=== PATIENT | female | born 1940 | race Caucasian/White ===

== ENCOUNTER 2016-09-03 16:45 | Emergency (ER) | payer OTHER ==
--- NOTE | 2016-09-03 17:14 | ED ORDER SUMMARY ---
..... Patient: SILVIO BEAVERS OrderSheet [facility] VisitID: [id number] [address] [place] [address] 75y, F Registration Date/Time: 09/03/2016 ORDER SHEET Weight: 64.4 kg (stated) Allergies: Penicillins, Doxycycline GENERAL ORDERS: Dress Wounds (x1 1/4 inch steri strip across middle thanks) (17:08 09/03/2016 Bernardo A.R.N.P.) (17:29 Corey Barrett) MEDICATION ORDERS: IV FLUIDS: ORDER SHEET NOTES: [Electronically signed by Sera MahoneyR.N.PIjeoma (18:24 09/03/2016)] [Electronically signed by Peggy Burgess R.N. (19:27 09/03/2016)] [Electronically locked/signed by Peggy Burgess R.N. (19:27 09/03/2016)]
--- NOTE | 2016-09-03 17:14 | ED ORDER SUMMARY ---
..... Patient: SILVIO BEAVERS OrderSheet [facility] VisitID: [id number] [address] [place] [address] 75y, F Registration Date/Time: 09/03/2016 ORDER SHEET Weight: 64.4 kg (stated) Allergies: Penicillins, Doxycycline GENERAL ORDERS: Dress Wounds (x1 1/4 inch steri strip across middle thanks) (17:08 09/03/2016 Bernardo A.R.N.P.) (17:29 Corey Barrett) MEDICATION ORDERS: IV FLUIDS: ORDER SHEET NOTES: [Electronically signed by Sera MahoneyR.N.PIjeoma (18:24 09/03/2016)] [Electronically signed by Peggy Burgess R.N. (19:27 09/03/2016)] [Electronically locked/signed by Peggy Burgess R.N. (19:27 09/03/2016)]
--- NOTE | 2016-09-03 17:14 | ED NURSING NOTES ---
Clinical Report - Nurses [facility] [address] [place] [address] 09/03/2016 16:45 Patient: SILVIO BEAVERS TRIAGE Acuity: LEVEL 4. Chief Complaint: DOG BITE. Alert. No acute distress. SEPSIS SCREEN: Sepsis Screen. Negative (no infection suspected/documented). ROSEMARIE COMA SCORE: [place] Coma Scale: 15- eyes open spontaneously (4); best verbal response- oriented x 4 (5); best motor response- obeys commands (6). --17:00 Peggy Burgess R.N. 16:48 09/03/16. BP: 129/66. HR: 90. RR: 24. O2 saturation: 88% on room air. Temp: 98.9 F. Pain level now: 03/27. --17:00 Peggy Burgess R.N. Weight: 64.4 kg stated. Height/Length: 60 inches Per Patient. BMI: 27.7. --16:54 Peggy Burgess R.N. Medications Letairis Oral (Tablet 10 mg). --16:52 Peggy Burgess R.N. Remodulin Injection. --16:54 Peggy Burgess R.N. Medication/allergy information source: the patient. --17:00 Peggy Burgess R.N. Allergies Penicillins. --16:49 Peggy Burgess R.N. Doxycycline. --16:49 Peggy Burgess R.N. History Arrived by EMS. Historian: patient. Unaccompanied. Primary physician (Analilia). Location of injuries: face. This occurred just prior to arrival. Occurred at a store. Circumstances: This was an "unprovoked" attack. The animal reportedly appeared well and the immunization status of the animal is unknown. 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 HR: 135. RR: 20. O2 saturation: 78 room air. PAST MEDICAL HX: Tetanus status: up-to-date. The patient is post-menopausal. SOCIAL HX: Former smoker, end date 1993. Occasional alcohol use. No drug use. NUTRITIONAL RISK ASSESSMENT: The nutritional risk assessment revealed no deficiencies. FUNCTIONAL ASSESSMENT: Functional assessment: no impairments noted. LEARNING NEEDS ASSESSMENT: The learning needs assessment revealed no barriers. FALL RISK ASSESSMENT: Fall risk assessment completed. Risk factors identified include patient age greater than 65 years. Fall interventions initiated. Brakes on Bed in low position. Call light in reach of patient. SKIN INTEGRITY ASSESSMENT: Skin integrity risk assessment completed. No skin integrity risk identified. --17:00 Peggy Burgess R.N. PROBLEMS: Fibromyalgia. Congestive Heart Failure. Pulmonary Hypertension. --16:50 Peggy Burgess R.N. Bladder cancer. Crest syndrome. --16:56 Peggy Burgess R.N. ADDITIONAL SURGERIES: Cholecystectomy. Tummy tuck. --16:59 Peggy Burgess R.N. Assessment GENERAL / NEURO / PSYCH: Alert. Oriented X 4. Appears in no acute distress. Patient appears calm and cooperative. RESPIRATORY: Respirations not labored. CVS: Capillary refill less than 2 seconds. GI / : Abdomen soft. SKIN: Mucous membranes are pink. Skin is warm and dry. --17:00 Peggy Burgess R.N. Interventions ID band on patient. To treatment room. --17:00 Peggy Burgess R.N. PHYSICAL ASSESSMENT Ambulatory to room. GENERAL / NEURO / PSYCH: Alert. Oriented X 4. Appears in no acute distress. HEENT: Pupils equal, round and reactive to light. Head non-tender. Mouth: tenderness, erythema and laceration (involving the vermilion border of the lip) of the upper lip. RESPIRATORY: Respirations not labored. CVS: Pulses within normal limits. Capillary refill less than 2 seconds. GI / : Abdomen soft and nontender. EXTREMITIES: Neuro-vascular status intact to the extremity. SKIN: Skin is warm and dry. No signs or symptoms of infection. --17:01 Peggy Burgess R.N. NURSING PROGRESS NOTES 17:09/03/16. Two patient identifiers checked. Call light placed in reach. Side rails up x 1. Bed placed in lowest position. Brakes of bed on. Patient ready for evaluation- chart flagged and ED physician and CASTING MACHINE OPERATOR AUTOMATIC notified. --17:02 Peggy Burgess R.N. Applied dressing consisting of steri-strips, following the application of benzoin solution. --17:35 Rosalinda Neumann ER Tech1. DISPOSITION / DISCHARGE Departure time: Sep 03 2016. Condition at departure: improved and stable. No learning barriers present. Discharge instructions provided and reviewed with the patient. Reviewed medication(s) side effects, precautions and dosing information. Prescription(s) given to the patient. Reviewed wound care instructions. Patient verbalized understanding. Written instructions provided in Belgian. The patient was discharged by the nurse practitioner. She was discharged home and accompanied by sister. She left the Emergency Department ambulatory and via private vehicle. Driving (sister). --19:26 Peggy Burgess R.N. Locked/Released at 09/03/2016 19:27 by Peggy Burgess R.N.
--- NOTE | 2016-09-03 17:14 | ED NURSING NOTES ---
Clinical Report - Nurses [facility] [address] [place] [address] 09/03/2016 16:45 Patient: SILVIO BEAVERS TRIAGE Acuity: LEVEL 4. Chief Complaint: DOG BITE. Alert. No acute distress. SEPSIS SCREEN: Sepsis Screen. Negative (no infection suspected/documented). ROSEMARIE COMA SCORE: [place] Coma Scale: 15- eyes open spontaneously (4); best verbal response- oriented x 4 (5); best motor response- obeys commands (6). --17:00 Peggy Burgess R.N. 16:48 09/03/16. BP: 129/66. HR: 90. RR: 24. O2 saturation: 88% on room air. Temp: 98.9 F. Pain level now: 03/27. --17:00 Peggy Burgess R.N. Weight: 64.4 kg stated. Height/Length: 60 inches Per Patient. BMI: 27.7. --16:54 Peggy Burgess R.N. Medications Letairis Oral (Tablet 10 mg). --16:52 Peggy Burgess R.N. Remodulin Injection. --16:54 Peggy Burgess R.N. Medication/allergy information source: the patient. --17:00 Peggy Burgess R.N. Allergies Penicillins. --16:49 Peggy Burgess R.N. Doxycycline. --16:49 Peggy Burgess R.N. History Arrived by EMS. Historian: patient. Unaccompanied. Primary physician (Analilia). Location of injuries: face. This occurred just prior to arrival. Occurred at a store. Circumstances: This was an "unprovoked" attack. The animal reportedly appeared well and the immunization status of the animal is unknown. 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 HR: 135. RR: 20. O2 saturation: 78 room air. PAST MEDICAL HX: Tetanus status: up-to-date. The patient is post-menopausal. SOCIAL HX: Former smoker, end date 1993. Occasional alcohol use. No drug use. NUTRITIONAL RISK ASSESSMENT: The nutritional risk assessment revealed no deficiencies. FUNCTIONAL ASSESSMENT: Functional assessment: no impairments noted. LEARNING NEEDS ASSESSMENT: The learning needs assessment revealed no barriers. FALL RISK ASSESSMENT: Fall risk assessment completed. Risk factors identified include patient age greater than 65 years. Fall interventions initiated. Brakes on Bed in low position. Call light in reach of patient. SKIN INTEGRITY ASSESSMENT: Skin integrity risk assessment completed. No skin integrity risk identified. --17:00 Peggy Burgess R.N. PROBLEMS: Fibromyalgia. Congestive Heart Failure. Pulmonary Hypertension. --16:50 Peggy Burgess R.N. Bladder cancer. Crest syndrome. --16:56 Peggy Burgess R.N. ADDITIONAL SURGERIES: Cholecystectomy. Tummy tuck. --16:59 Peggy Burgess R.N. Assessment GENERAL / NEURO / PSYCH: Alert. Oriented X 4. Appears in no acute distress. Patient appears calm and cooperative. RESPIRATORY: Respirations not labored. CVS: Capillary refill less than 2 seconds. GI / : Abdomen soft. SKIN: Mucous membranes are pink. Skin is warm and dry. --17:00 Peggy Burgess R.N. Interventions ID band on patient. To treatment room. --17:00 Peggy Burgess R.N. PHYSICAL ASSESSMENT Ambulatory to room. GENERAL / NEURO / PSYCH: Alert. Oriented X 4. Appears in no acute distress. HEENT: Pupils equal, round and reactive to light. Head non-tender. Mouth: tenderness, erythema and laceration (involving the vermilion border of the lip) of the upper lip. RESPIRATORY: Respirations not labored. CVS: Pulses within normal limits. Capillary refill less than 2 seconds. GI / : Abdomen soft and nontender. EXTREMITIES: Neuro-vascular status intact to the extremity. SKIN: Skin is warm and dry. No signs or symptoms of infection. --17:01 Peggy Burgess R.N. NURSING PROGRESS NOTES 17:09/03/16. Two patient identifiers checked. Call light placed in reach. Side rails up x 1. Bed placed in lowest position. Brakes of bed on. Patient ready for evaluation- chart flagged and ED physician and CIVIL ENGINEERING DRAFTER notified. --17:02 Peggy Burgess R.N. Applied dressing consisting of steri-strips, following the application of benzoin solution. --17:35 Rosalinda Neumann ER Tech1. DISPOSITION / DISCHARGE Departure time: Sep 03 2016. Condition at departure: improved and stable. No learning barriers present. Discharge instructions provided and reviewed with the patient. Reviewed medication(s) side effects, precautions and dosing information. Prescription(s) given to the patient. Reviewed wound care instructions. Patient verbalized understanding. Written instructions provided in [place]. The patient was discharged by the nurse practitioner. She was discharged home and accompanied by sister. She left the Emergency Department ambulatory and via private vehicle. Driving (sister). --19:26 Peggy Burgess R.N. Locked/Released at 09/03/2016 19:27 by Peggy Burgess R.N.
--- NOTE | 2016-09-03 17:14 | ED CLINICAL REPORT ---
Clinical Report - Physicians/Mid Levels [facility] [address] [place] [address] 09/03/2016 16:45 Patient: SILVIO BEAVERS Time Seen: 1652; initial patient contact, initial documentation, patient care assumed. Arrived- By private vehicle. Historian- patient. HISTORY OF PRESENT ILLNESS Location of injuries- face. Chief Complaint: DOG BITE. The injury occurred just prior to arrival. This was an "unprovoked" attack. (walking out of grocery store, dog there, reached down to pet dog and got bit). Patient approached animal. (grocery store). No skin rash. She has not had trouble swallowing. 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 REVIEW OF SYSTEMS No swelling, numbness or difficulty breathing. All systems otherwise negative, except as recorded above. PAST HISTORY See nurses notes. PROBLEMS: Fibromyalgia. Congestive Heart Failure. Pulmonary Hypertension. --16:50 Peggy Burgess R.N. Bladder cancer. Crest syndrome. --16:56 Peggy Burgess R.N. ADDITIONAL SURGERIES: Cholecystectomy. Tummy tuck. --16:59 Peggy Burgess R.N. Tetanus immunization status is up-to-date. SOCIAL HISTORY Former smoker. Occasional alcohol use. No drug use. No recent travel. Is a local resident. FAMILY HISTORY No significant family medical history. ADDITIONAL NOTES The nursing notes have been reviewed with agreement regarding the chief complaint, HPI, ROS, PMH and patient medications and allergies. PHYSICAL EXAM Vital Signs: 09/03/2016 16:48 BP: 129/66. HR: 90. RR: 24. O2 saturation: 88%. Temp: 98.9 F. Pain level now: 8/10. Have been reviewed as abnormal and do not appear to be correct. Blood pressure normal. Heart rate normal. Respiratory rate normal. Temperature normal. Oxygen saturation: 98 % room air when I was in room- oxygen saturation low. Appearance: Alert. Oriented X3. No acute distress. Head: Head normal on inspection and non-tender. Mouth: subcutaneous 1.0 cm laceration of the the area above the upper lip. No erythema, tenderness, swelling, abrasion or ecchymosis. No puncture wound, foreign body or deformity. No malocclusion or dental abnormality. Eyes: Eyes normal inspection. ENT: Ears normal on inspection. Nose normal on inspection. Mouth normal on inspection. Neck: Normal inspection. Neck non-tender. Painless ROM. Skin: Skin intact. Skin warm and dry. Normal skin color. Normal skin turgor. Extremities: Normal inspection. Pelvis stable. Extremities atraumatic. No lower extremity edema. Neuro: Oriented X 3. No motor deficit. No sensory deficit. PROGRESS AND PROCEDURES Course of Care: tx options discussed, with closure of bites, decided with pt that best closure would be partial with steri strip, pt did not want sutures. Patient counseled in person regarding the patient's stable condition and diagnosis. 17:14. Differential Diagnosis: Other possible considerations: dog bite, skin avulsion. Above considerations are based on history and physical exam. Differential diagnosis was discussed with patient. Disposition: Discharged home in good and improved condition (17:14). Condition: good and stable. CLINICAL IMPRESSION Single superficial dog bite (face). INSTRUCTIONS Protect wound and keep wound area clean. You may wash wounds briefly, then dry. Allow steri-strips to remain in place until they loosen. Warnings: GENERAL WARNINGS: Return or contact your physician immediately if your condition worsens or changes unexpectedly, if not improving as expected, or if other problems arise. Specifically return if problem worsens. Prescription Medications: Cephalexin 500 mg: take 1 capsule orally every 8 hours for 10 days. No refill. Follow-up: Follow up with your doctor in about three days even if well and for wound check. Call for an appointment. Summary of care provided to patient. Understanding of the discharge instructions verbalized by patient. (Electronically signed by Sera Mahoney A.R.N.P. 09/03/2016 18:24)
--- NOTE | 2016-09-03 17:14 | ED CLINICAL REPORT ---
Clinical Report - Physicians/Mid Levels [facility] [address] [place] [address] 09/03/2016 16:45 Patient: SILVIO BEAVERS Time Seen: 1652; initial patient contact, initial documentation, patient care assumed. Arrived- By private vehicle. Historian- patient. HISTORY OF PRESENT ILLNESS Location of injuries- face. Chief Complaint: DOG BITE. The injury occurred just prior to arrival. This was an "unprovoked" attack. (walking out of grocery store, dog there, reached down to pet dog and got bit). Patient approached animal. (grocery store). No skin rash. She has not had trouble swallowing. 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 REVIEW OF SYSTEMS No swelling, numbness or difficulty breathing. All systems otherwise negative, except as recorded above. PAST HISTORY See nurses notes. PROBLEMS: Fibromyalgia. Congestive Heart Failure. Pulmonary Hypertension. --16:50 Peggy Burgess R.N. Bladder cancer. Crest syndrome. --16:56 Peggy Burgess R.N. ADDITIONAL SURGERIES: Cholecystectomy. Tummy tuck. --16:59 Peggy Burgess R.N. Tetanus immunization status is up-to-date. SOCIAL HISTORY Former smoker. Occasional alcohol use. No drug use. No recent travel. Is a local resident. FAMILY HISTORY No significant family medical history. ADDITIONAL NOTES The nursing notes have been reviewed with agreement regarding the chief complaint, HPI, ROS, PMH and patient medications and allergies. PHYSICAL EXAM Vital Signs: 09/03/2016 16:48 BP: 129/66. HR: 90. RR: 24. O2 saturation: 88%. Temp: 98.9 F. Pain level now: 8/10. Have been reviewed as abnormal and do not appear to be correct. Blood pressure normal. Heart rate normal. Respiratory rate normal. Temperature normal. Oxygen saturation: 98 % room air when I was in room- oxygen saturation low. Appearance: Alert. Oriented X3. No acute distress. Head: Head normal on inspection and non-tender. Mouth: subcutaneous 1.0 cm laceration of the the area above the upper lip. No erythema, tenderness, swelling, abrasion or ecchymosis. No puncture wound, foreign body or deformity. No malocclusion or dental abnormality. Eyes: Eyes normal inspection. ENT: Ears normal on inspection. Nose normal on inspection. Mouth normal on inspection. Neck: Normal inspection. Neck non-tender. Painless ROM. Skin: Skin intact. Skin warm and dry. Normal skin color. Normal skin turgor. Extremities: Normal inspection. Pelvis stable. Extremities atraumatic. No lower extremity edema. Neuro: Oriented X 3. No motor deficit. No sensory deficit. PROGRESS AND PROCEDURES Course of Care: tx options discussed, with closure of bites, decided with pt that best closure would be partial with steri strip, pt did not want sutures. Patient counseled in person regarding the patient's stable condition and diagnosis. 17:14. Differential Diagnosis: Other possible considerations: dog bite, skin avulsion. Above considerations are based on history and physical exam. Differential diagnosis was discussed with patient. Disposition: Discharged home in good and improved condition (17:14). Condition: good and stable. CLINICAL IMPRESSION Single superficial dog bite (face). INSTRUCTIONS Protect wound and keep wound area clean. You may wash wounds briefly, then dry. Allow steri-strips to remain in place until they loosen. Warnings: GENERAL WARNINGS: Return or contact your physician immediately if your condition worsens or changes unexpectedly, if not improving as expected, or if other problems arise. Specifically return if problem worsens. Prescription Medications: Cephalexin 500 mg: take 1 capsule orally every 8 hours for 10 days. No refill. Follow-up: Follow up with your doctor in about three days even if well and for wound check. Call for an appointment. Summary of care provided to patient. Understanding of the discharge instructions verbalized by patient. (Electronically signed by Sera Mahoney A.R.N.P. 09/03/2016 18:24)
--- NOTE | 2016-09-03 19:27 | ED DISCHARGE INSTRUCTIONS ---
Patient: SILVIO BEAVERS General Instructions [facility] VisitID: [id number] [place] [address] 75y, F Registration Date/Time: 09/03/2016 Single superficial dog bite (face). INSTRUCTIONS Protect wound and keep wound area clean. You may wash wounds briefly, then dry. Allow steri-strips to remain in place until they loosen. Warnings: GENERAL WARNINGS: Return or contact your physician immediately if your condition worsens or changes unexpectedly, if not improving as expected, or if other problems arise. Specifically return if problem worsens. Prescription Medications: Cephalexin 500 mg: take 1 capsule orally every 8 hours for 10 days. No refill. Follow-up: Follow up with your doctor in about three days even if well and for wound check. Call for an appointment. Summary of care provided to patient. Understanding of the discharge instructions verbalized by patient. ADDITIONAL INFORMATION Dog Bite If a dog has bitten you and the wound is deep enough to break the skin, an infection may occur. Therefore, you should watch for the warning signs listed below. The doctor may not close the wound completely. This is to allow fluid to drain in the event of an infection. Home Care Watch the wound for signs of infection listed below. In certain types of bites, antibiotics may be prescribed. Begin taking these as soon as possible, as directed until they are all gone. Rabies Prevention If you live in an area where rabies occurs in wild animals, the rabies virus can be passed to cats and dogs. An infected animal can pass the rabies virus to you during a bite. If ahealthy-looking pet dog has bitten you, it should be kept in a secure area for the next 10 days to watch for signs of illness. If the pet prosthodontist/owner wont cooperate with you, contact the [facility] animal control department (or local law enforcement). If the animal becomes ill or dies [id number] days, contact your animal control department at once. The animal must be tested for rabies. If the animal stays healthy for the next 10 days, then there is no danger of rabies in the dog or you. Pets fully vaccinated against rabies (2 shots) are at very low risk for the infection. However, because human rabies is almost always fatal, any biting dog should be kept in confinement for 10 days as an extra precaution. If a stray dog bit you, contact the animal control department. They can provide information on capture, quarantine, and animal rabies testing. If you are unable to locate the animal that bit you in the next 2days, and if rabies exists in your region, you must be evaluated for the rabies vaccine series. Contact your doctor or return here promptly. All animal bites should be reported to the [facility] animal control department. If you were not given a form to fill out, you can report it yourself by calling. Follow Up with your doctor as advised. Most skin wounds heal within 10 days. However, an infection may occur even with proper treatment. Check your woundevery 6 hoursfor 2 days, then at least once a day for the next two days for the signs of infection listed below. Get Prompt Medical Attention if any of the following occur: Signs of infection: Spreading redness Increased pain or swelling Fever of 100.4F (38C) or higher, or as directed by your healthcare provider Colored fluid or pus draining from the wound Headache, confusion, strange behavior, or a seizure (signs of a rabies infection) Laceration, Face (Suture Or Tape) Alaceration is a cut through the skin. This will require stitches if it is deep. Minor cuts may be treated with surgical tape. Home care The following guidelines will help you care for your laceration at home: If a bandage was applied and it becomes wet or dirty, replace it. Otherwise, leave it in place for the first 24 hours, then change it once a day or as directed. If sutures were used, clean the wound daily: After removing the bandage, wash the area with soap and water. Use a wet cotton swab to loosen and remove any blood or crust that forms. After cleaning, keep the wound clean and dry. Talk with your doctor before applying any antibiotic ointment to the wound. Reapply a fresh bandage. You may remove the bandage to shower as usual after the first 24 hours, but do not soak the area in water (no swimming) until the sutures are removed. If surgical tape was used, keep the area clean and dry. If it becomes wet, blot it dry with a towel. The doctor may prescribe an antibiotic cream or ointment to prevent infection. Do not stop taking this medication until you have have finished the prescribed course or the doctor tells you to stop. The doctor may also prescribe medications for pain. Follow the doctor's instructions for taking these medications.If you have chronic liver or kidney disease or ever had a stomach ulcer or GI bleeding, talk with your doctor before using these medicines. Follow-up care Follow up with your health care provider. Most facial cuts heal in five days with no problem. However, even with proper treatment, a wound infection sometimes occurs. Therefore, check the wound daily for the warning signs listed below. Stitches should not be left in the face for more thanfivedays; otherwise, permanent stitch tang may form. If surgical tape closures were used, you may remove them yourself afterfivedays, if they have not fallen off by then. When to seek medical care Get prompt medical attention if any of these occur: Increasing pain in the wound Redness, swelling, or pus coming from the wound If sutures come apart or fall out before 5 days If the surgical tape closures fall off before 5 days, or the wound edges reopen Fever of 100.4F (38C) or higher, or as directed by your health care provider Bleeding not controlled by direct pressure Cephalexin Monohydrate Oral tablet What is this medicine? CEPHALEXIN (sef a TUAN in) is a cephalosporin antibiotic. It is used to treat certain kinds of bacterial infections It will not work for colds, flu, or other viral infections. How should I use this medicine? Take this medicine by mouth with a full glass of water. Follow the directions on the prescription label. This medicine can be taken with or without food. Take your medicine at regular intervals. Do not take your medicine more often than directed. Take all of your medicine as directed even if you think you are better. Do not skip doses or stop your medicine early. Talk to your laser systems engineer regarding the use of this medicine in children. While this drug may be prescribed for selected conditions, precautions do apply. What side effects may I notice from receiving this medicine? Side effects that you should report to your doctor or health direct care staffer as soon as possible: allergic reactions like skin rash, itching or hives, swelling of the face, lips, or tongue breathing problems pain or trouble passing urine redness, blistering, peeling or loosening of the skin, including inside the mouth severe or watery diarrhea unusually weak or tired yellowing of the eyes, skin Side effects that usually do not require medical attention (report to your doctor or health direct care staffer if they continue or are bothersome): gas or heartburn genital or anal irritation headache joint or muscle pain nausea, vomiting What may interact with this medicine? probenecid some other antibiotics What if I miss a dose? If you miss a dose, take it as soon as you can. If it is almost time for your next dose, take only that dose. Do not take double or extra doses. There should be at least 4 to 6 hours between doses. Where should I keep my medicine? Keep out of the reach of children. Store at room temperature between 59 and 86 degrees F (15 and 30 degrees C). Throw away any unused medicine after the expiration date. What should I tell my health care provider before I take this medicine? They need to know if you have any of these conditions: kidney disease stomach or intestine problems, especially colitis an unusual or allergic reaction to cephalexin, other cephalosporins, penicillins, other antibiotics, medicines, foods, dyes or preservatives or trying to get breast-feeding What should I watch for while using this medicine? Tell your doctor or health direct care staffer if your symptoms do not begin to improve in a few days. Do not treat diarrhea with over the counter products. Contact your doctor if you have diarrhea that lasts more than 2 days or if it is severe and watery. If you have diabetes, you may get a false-positive result for sugar in your urine. Check with your doctor or health direct care staffer. You have been given the following additional information: Dog Bite Laceration, Face (Suture Or Tape) Cephalexin Monohydrate Oral tablet (Electronically signed by Sera Mahoney A.R.NSharifa 09/03/2016 18:24)
--- NOTE | 2016-09-03 19:27 | ED MED RECONCILIATION SUMMARY ---
Patient: SILVIO BEAVERS Medication Reconciliation Report [facility] VisitID: [id number] [address] [place] [address] 75y, F Registration Date/Time: 09/03/2016 Weight: 64.4 kg Height/Length: 60 in. BMI: 27.7 ALLERGIES: Doxycycline, Penicillins The patient's Home Medications are listed below: THE FOLLOWING MEDICATIONS NEED TO BE RECONCILED: Letairis Oral (10 mg) Remodulin Injection The source(s) of the original Home Medication information: patient The following Medications were given to the patient in the Emergency Department: None. The following Medications were prescribed to the patient: Cephalexin 500 mg: take 1 capsule orally every 8 hours for 10 days. No refill. -- Sera Mahoney A.R.N.P.
--- NOTE | 2016-09-03 19:27 | ED DISCHARGE INSTRUCTIONS ---
Patient: SILVIO BEAVERS General Instructions [facility] VisitID: [id number] [place] [address] 75y, F Registration Date/Time: 09/03/2016 Single superficial dog bite (face). INSTRUCTIONS Protect wound and keep wound area clean. You may wash wounds briefly, then dry. Allow steri-strips to remain in place until they loosen. Warnings: GENERAL WARNINGS: Return or contact your physician immediately if your condition worsens or changes unexpectedly, if not improving as expected, or if other problems arise. Specifically return if problem worsens. Prescription Medications: Cephalexin 500 mg: take 1 capsule orally every 8 hours for 10 days. No refill. Follow-up: Follow up with your doctor in about three days even if well and for wound check. Call for an appointment. Summary of care provided to patient. Understanding of the discharge instructions verbalized by patient. ADDITIONAL INFORMATION Dog Bite If a dog has bitten you and the wound is deep enough to break the skin, an infection may occur. Therefore, you should watch for the warning signs listed below. The doctor may not close the wound completely. This is to allow fluid to drain in the event of an infection. Home Care Watch the wound for signs of infection listed below. In certain types of bites, antibiotics may be prescribed. Begin taking these as soon as possible, as directed until they are all gone. Rabies Prevention If you live in an area where rabies occurs in wild animals, the rabies virus can be passed to cats and dogs. An infected animal can pass the rabies virus to you during a bite. If ahealthy-looking pet dog has bitten you, it should be kept in a secure area for the next 10 days to watch for signs of illness. If the pet dust brush assembler wont cooperate with you, contact the [facility] animal control department (or local law enforcement). If the animal becomes ill or dies [id number] days, contact your animal control department at once. The animal must be tested for rabies. If the animal stays healthy for the next 10 days, then there is no danger of rabies in the dog or you. Pets fully vaccinated against rabies (2 shots) are at very low risk for the infection. However, because human rabies is almost always fatal, any biting dog should be kept in confinement for 10 days as an extra precaution. If a stray dog bit you, contact the animal control department. They can provide information on capture, quarantine, and animal rabies testing. If you are unable to locate the animal that bit you in the next 2days, and if rabies exists in your region, you must be evaluated for the rabies vaccine series. Contact your doctor or return here promptly. All animal bites should be reported to the [facility] animal control department. If you were not given a form to fill out, you can report it yourself by calling. Follow Up with your doctor as advised. Most skin wounds heal within 10 days. However, an infection may occur even with proper treatment. Check your woundevery 6 hoursfor 2 days, then at least once a day for the next two days for the signs of infection listed below. Get Prompt Medical Attention if any of the following occur: Signs of infection: Spreading redness Increased pain or swelling Fever of 100.4F (38C) or higher, or as directed by your healthcare provider Colored fluid or pus draining from the wound Headache, confusion, strange behavior, or a seizure (signs of a rabies infection) Laceration, Face (Suture Or Tape) Alaceration is a cut through the skin. This will require stitches if it is deep. Minor cuts may be treated with surgical tape. Home care The following guidelines will help you care for your laceration at home: If a bandage was applied and it becomes wet or dirty, replace it. Otherwise, leave it in place for the first 24 hours, then change it once a day or as directed. If sutures were used, clean the wound daily: After removing the bandage, wash the area with soap and water. Use a wet cotton swab to loosen and remove any blood or crust that forms. After cleaning, keep the wound clean and dry. Talk with your doctor before applying any antibiotic ointment to the wound. Reapply a fresh bandage. You may remove the bandage to shower as usual after the first 24 hours, but do not soak the area in water (no swimming) until the sutures are removed. If surgical tape was used, keep the area clean and dry. If it becomes wet, blot it dry with a towel. The doctor may prescribe an antibiotic cream or ointment to prevent infection. Do not stop taking this medication until you have have finished the prescribed course or the doctor tells you to stop. The doctor may also prescribe medications for pain. Follow the doctor's instructions for taking these medications.If you have chronic liver or kidney disease or ever had a stomach ulcer or GI bleeding, talk with your doctor before using these medicines. Follow-up care Follow up with your health care provider. Most facial cuts heal in five days with no problem. However, even with proper treatment, a wound infection sometimes occurs. Therefore, check the wound daily for the warning signs listed below. Stitches should not be left in the face for more thanfivedays; otherwise, permanent stitch tang may form. If surgical tape closures were used, you may remove them yourself afterfivedays, if they have not fallen off by then. When to seek medical care Get prompt medical attention if any of these occur: Increasing pain in the wound Redness, swelling, or pus coming from the wound If sutures come apart or fall out before 5 days If the surgical tape closures fall off before 5 days, or the wound edges reopen Fever of 100.4F (38C) or higher, or as directed by your health care provider Bleeding not controlled by direct pressure Cephalexin Monohydrate Oral tablet What is this medicine? CEPHALEXIN (sef a TUAN in) is a cephalosporin antibiotic. It is used to treat certain kinds of bacterial infections It will not work for colds, flu, or other viral infections. How should I use this medicine? Take this medicine by mouth with a full glass of water. Follow the directions on the prescription label. This medicine can be taken with or without food. Take your medicine at regular intervals. Do not take your medicine more often than directed. Take all of your medicine as directed even if you think you are better. Do not skip doses or stop your medicine early. Talk to your stores naval regarding the use of this medicine in children. While this drug may be prescribed for selected conditions, precautions do apply. What side effects may I notice from receiving this medicine? Side effects that you should report to your doctor or health day care director as soon as possible: allergic reactions like skin rash, itching or hives, swelling of the face, lips, or tongue breathing problems pain or trouble passing urine redness, blistering, peeling or loosening of the skin, including inside the mouth severe or watery diarrhea unusually weak or tired yellowing of the eyes, skin Side effects that usually do not require medical attention (report to your doctor or health day care director if they continue or are bothersome): gas or heartburn genital or anal irritation headache joint or muscle pain nausea, vomiting What may interact with this medicine? probenecid some other antibiotics What if I miss a dose? If you miss a dose, take it as soon as you can. If it is almost time for your next dose, take only that dose. Do not take double or extra doses. There should be at least 4 to 6 hours between doses. Where should I keep my medicine? Keep out of the reach of children. Store at room temperature between 59 and 86 degrees F (15 and 30 degrees C). Throw away any unused medicine after the expiration date. What should I tell my health care provider before I take this medicine? They need to know if you have any of these conditions: kidney disease stomach or intestine problems, especially colitis an unusual or allergic reaction to cephalexin, other cephalosporins, penicillins, other antibiotics, medicines, foods, dyes or preservatives or trying to get breast-feeding What should I watch for while using this medicine? Tell your doctor or health day care director if your symptoms do not begin to improve in a few days. Do not treat diarrhea with over the counter products. Contact your doctor if you have diarrhea that lasts more than 2 days or if it is severe and watery. If you have diabetes, you may get a false-positive result for sugar in your urine. Check with your doctor or health day care director. You have been given the following additional information: Dog Bite Laceration, Face (Suture Or Tape) Cephalexin Monohydrate Oral tablet (Electronically signed by Sera Mahoney A.R.NSharifa 09/03/2016 18:24)
--- NOTE | 2016-09-03 19:27 | ED MAR SUMMARY ---
..... Medication Administration Record [facility] [address] [place], [place] [id number] Patient: SILVIO BEAVERS Visit ID: [id number] 75y, F Weight: 64.4 kg Height/Length: 60 in BMI: 27.7 ALLERGIES: Doxycycline, Penicillins
--- NOTE | 2016-09-03 19:27 | ED MED RECONCILIATION SUMMARY ---
Patient: SILVIO BEAVERS Medication Reconciliation Report [facility] VisitID: [id number] [address] [place] [address] 75y, F Registration Date/Time: 09/03/2016 Weight: 64.4 kg Height/Length: 60 in. BMI: 27.7 ALLERGIES: Doxycycline, Penicillins The patient's Home Medications are listed below: THE FOLLOWING MEDICATIONS NEED TO BE RECONCILED: Letairis Oral (10 mg) Remodulin Injection The source(s) of the original Home Medication information: patient The following Medications were given to the patient in the Emergency Department: None. The following Medications were prescribed to the patient: Cephalexin 500 mg: take 1 capsule orally every 8 hours for 10 days. No refill. -- Sera Mahoney A.R.N.P.
--- NOTE | 2016-09-03 19:27 | ED MAR SUMMARY ---
..... Medication Administration Record [facility] [address] [place], [place] [id number] Patient: SILVIO BEAVERS Visit ID: [id number] 75y, F Weight: 64.4 kg Height/Length: 60 in BMI: 27.7 ALLERGIES: Doxycycline, Penicillins
== END 2016-09-03 17:35 | disposition home or self-care (01) ==
LOC: ED SRH 16:45
DX: S00.571A Other superficial bite of lip, initial encounter (principal); W54.0XXA Bitten by dog, initial encounter; Y93.9 Activity, unspecified; Y92.512 Supermarket, store or market as the place of occurrence of the external cause; Y99.9 Unspecified external cause status; Z87.891 Personal history of nicotine dependence; Z88.0 Allergy status to penicillin